=== PATIENT | female | born 1985 | race Two or more races ===

== ENCOUNTER 2024-02-29 18:04 | Emergency (ER) | payer OTHER ==
[~2024-02-29] VITALS: Ht 152.4 cm; Wt 61.2 kg
[~2024-02-29 18:04] MED LIST: TYLENOL W-CODEI1 TAB PO; TYLENOL-CODEINE1 TAB PO
[2024-02-29 20:42] LABS: PH,URINE 5.5 (5.0-8.0); URINE APPEARANCE Clear; URINE BILIRRUBIN Negative (NEGATIVE); URINE BLOOD Moderate; URINE COLOR Yellow; URINE GLUCOSE Negative (NEGATIVE); URINE LEUKOCYTE Negative; URINE NITRATE Negative; URINE PROTEIN Negative (NEGATIVE); URINE UROBILINOGEN 0.2 E.U./dl
[2024-02-29 20:46] LABS: URINE BACTERIA 6.2 uL (0.0-1933); URINE EPITHELIAL CELLS 4.7 uL (0.0-38.8); URINE RBC 138.7 uL (0.0-20.8); URINE WBC 7.2 uL (0.0-23.2)
[2024-02-29 22:21] LABS: MEAN CELL VOLUME 84.1 fL (80.00-100.00); MEAN CORPUSCULAR HGB CONC 34.8 g/dl (32.0-36.0); PLATELET COUNT 238 K/uL (150-450); RED BLOOD COUNT 2.53 M/uL (4.00-6.00); RED CELL DISTRIBUTION WIDTH 14.1 % (11.5-14.5)
[2024-02-29 22:22] LABS: MEAN CORPUSCULAR HEMOGLOBIN 29.2 pg (27.00-32.0)
[2024-02-29 22:24] LABS: HEMOGLOBIN 7.4 g/dL (12.0-15.00)
[2024-02-29 22:25] LABS: HEMATOCRIT 21.2 % (36.0-45.00)
[2024-02-29] MEDS ORDERED: ESTROGENS, CONJUGATED 25 MG VIAL IV ONE (23:15)
== END 2024-03-01 01:00 | disposition home or self-care (01) ==
LOC: ER 18:04
PROVIDERS: Emergency Medicine
DX: N93.9 Abnormal uterine and vaginal bleeding, unspecified (principal); D64.9 Anemia, unspecified; Z20.822 Contact with and (suspected) exposure to COVID-19; Z88.8 Allergy status to other drugs, medicaments and biological substances

== ENCOUNTER 2024-03-01 08:14 | Inpatient (IN) | payer OTHER ==
[~2024-03-01] VITALS: Ht 167.6 cm; Wt 61.2 kg
[2024-03-01] MEDS ORDERED: RINGERS SOLUTION,LACTATED 1,000 ML IV ONE (08:30)
[2024-03-01 09:21] LABS: INR 1.01; PROTHROMBIN TIME 10.6 SECONDS (9.0-11.5)
[2024-03-01 09:30] LABS: MEAN CELL VOLUME 83.3 fL (80.00-100.00); MEAN CORPUSCULAR HGB CONC 34.3 g/dl (32.0-36.0); PARTIAL THROMBOPLASTIN TIME 20.3 SECONDS (22.0-34.0); PLATELET COUNT 206 K/uL (150-450); RED BLOOD COUNT 2.26 M/uL (4.00-6.00); RED CELL DISTRIBUTION WIDTH 14.3 % (11.5-14.5)
[2024-03-01 09:31] LABS: MEAN CORPUSCULAR HEMOGLOBIN 28.7 pg (27.00-32.0)
[2024-03-01 09:32] LABS: HEMATOCRIT 18.8 % (36.0-45.00); HEMOGLOBIN 6.5 g/dL (12.0-15.00)
[2024-03-01 10:34] LABS: ALBUMIN 2.5 gm/dL (3.4-5.0); ALKALINE PHOSPHATASE 41 U/L (50-136); ALT/SGPT 23 U/L (12-78); ANION GAP 9 (10.0-20.0); AST/SGOT 20 U/L (15-37); BILIRUBIN TOTAL 0.19 mg/dL (0.3-1.2); BLOOD UREA NITROGEN 9 mg/dL (7-18); BUN CREA RATIO 14 (7.0-25.0); CALCIUM 7.9 mg/dL (8.5-10.1); CARBON DIOXIDE 26 mEq/L (21-32); CHLORIDE 110 mmol/L (98-107); CREATININE SERUM 0.65 mg/dL (0.55-1.02); GFR 101.47; GLOBULINA 3.3 G/DL (2.4-3.5); GLUCOSE FASTING 97 mg/dL (65-100); OSMOLALITY SERUM 280 MOSM/KG (275-295); POTASSIUM 3.78 mEq/L (3.5-5.1); SODIUM 141 mmol/L (136-145); TOTAL PROTEIN 5.8 gm/dL (6.4-8.2)
[2024-03-01 10:41] LABS: HCG QUANTITATIVE < 1 mUI/mL (1-3)
[2024-03-01] MEDS ORDERED: ESTROGENS, CONJUGATED 25 MG VIAL IV SCH ×2 (11:05→21:00)
[2024-03-01 11:30] LABS: PH,URINE 6.5 (5.0-8.0); URINE APPEARANCE Cloudy; URINE BILIRRUBIN Negative (NEGATIVE); URINE BLOOD Large; URINE COLOR Orange; URINE GLUCOSE Negative (NEGATIVE); URINE LEUKOCYTE Negative; URINE NITRATE Negative; URINE PROTEIN Negative (NEGATIVE); URINE UROBILINOGEN 0.2 E.U./dl
[2024-03-01 11:33] LABS: URINE BACTERIA 71.8 uL (0.0-1933); URINE RBC 4299.8 uL (0.0-20.8); URINE WBC 26.2 uL (0.0-23.2)
[2024-03-01] MEDS ORDERED: SOD FERRIC GLUC COMPLX/SUCROSE 125 MG in 0.9 % SODIUM CHLORIDE 100 ML IV SCH (14:04)
[2024-03-01] MEDS ORDERED: ACETAMINOPHEN 500 MG GEL..CAP PO PRN (14:45)
[2024-03-02 08:35] LABS: HEMATOCRIT 30.5 % (36.0-45.00); HEMOGLOBIN 10.5 g/dL (12.0-15.00); MEAN CELL VOLUME 85.2 fL (80.00-100.00); MEAN CORPUSCULAR HEMOGLOBIN 29.2 pg (27.00-32.0); MEAN CORPUSCULAR HGB CONC 34.3 g/dl (32.0-36.0); PLATELET COUNT 188 K/uL (150-450); RED BLOOD COUNT 3.58 M/uL (4.00-6.00); RED CELL DISTRIBUTION WIDTH 15.1 % (11.5-14.5)
[2024-03-02] MEDS ORDERED: FUROsemide 40 MG/4 ML VIAL IV ONE (12:15)
[2024-03-02] MEDS ORDERED: DIPHENHYDRAMINE HCL 50 MG/ML VIAL 1ML IV ONE (12:15)
[2024-03-02] MEDS ORDERED: METHYLPREDNISOLONE SOD SUCC 125 MG VIAL IV ONE (12:15)
[2024-03-02] MEDS ORDERED: METHYLPREDNISOLONE SOD SUCC 125 MG VIAL IV STA (12:28)
[2024-03-02] MEDS ORDERED: METHYLPREDNISOLONE 4 MG TABLET PO NR (21:00)
[2024-03-03] MEDS ORDERED: METHYLPREDNISOLONE 4 MG TABLET PO NR ×4 (06:00→21:00)
[2024-03-03] MEDS ORDERED: FF) NORGESTREL-ETHINYL ESTRADIOL TAB PO SCH ×2 (09:00→17:00)
[2024-03-03] MEDS ORDERED: FF) NORGESTREL-ETHINYL ESTRADIOL TAB PO NR (09:30)
[2024-03-03] MEDS ORDERED: DOCUSATE SODIUM 100MG CAP PO SCH (13:30)
[2024-03-04] MEDS ORDERED: METHYLPREDNISOLONE 4 MG TABLET PO NR ×4 (06:00→21:00)
[2024-03-05] MEDS ORDERED: METHYLPREDNISOLONE 4 MG TABLET PO NR ×3 (06:00→21:00)
[2024-03-06] MEDS ORDERED: METHYLPREDNISOLONE 4 MG TABLET PO NR ×2 (11:00→21:00)
[2024-03-07] MEDS ORDERED: METHYLPREDNISOLONE 4 MG TABLET PO NR (06:00)
== END 2024-03-04 09:12 | disposition home or self-care (01) | DRG 812 ==
LOC: ER 08:14 → OB/GYN 11:30
PROVIDERS: General Practice; ADMIT Obstetrics & Gynecology; ATTEND Obstetrics & Gynecology
PROC: 30233N1 Transfusion of Nonautologous Red Blood Cells into Peripheral Vein, Percutaneous Approach (ICD-10-PCS; principal; 2024-03-01)
PROC: BW28ZZZ Computerized Tomography (CT Scan) of Head (ICD-10-PCS; 2024-03-01)
PROC: BR20ZZZ Computerized Tomography (CT Scan) of Cervical Spine (ICD-10-PCS; 2024-03-01)
DX: D64.9 Anemia, unspecified (principal); N93.8 Other specified abnormal uterine and vaginal bleeding; Z20.822 Contact with and (suspected) exposure to COVID-19

== ENCOUNTER 2024-07-22 08:00 | Inpatient (IN) | payer OTHER ==
[~2024-07-22] VITALS: Ht 154.9 cm; Wt 63.5 kg
[2024-07-22 10:39] VITALS: BP 109/74
[2024-07-22 10:43] VITALS: BP 101/66
[2024-07-22 10:46] LABS: HEMOGLOBIN 12.4 g/dL (12.0-15.00); MEAN CELL VOLUME 86.7 fL (80.00-100.00); MEAN CORPUSCULAR HGB CONC 33.4 g/dl (32.0-36.0); PLATELET COUNT 240 K/uL (150-450); RED BLOOD COUNT 4.27 M/uL (4.00-6.00)
[2024-07-22 10:58] LABS: URINE APPEARANCE Clear; URINE BILIRRUBIN Negative (NEGATIVE); URINE BLOOD Negative; URINE COLOR Yellow; URINE GLUCOSE Negative (NEGATIVE); URINE KETONE Negative (NEGATIVE); URINE LEUKOCYTE Small; URINE NITRATE Negative; URINE PROTEIN Negative (NEGATIVE); URINE UROBILINOGEN 0.2 E.U./dl
[2024-07-22 11:04] LABS: URINE BACTERIA 95.7 uL (0.0-1933); URINE EPITHELIAL CELLS 4.4 uL (0.0-38.8); URINE WBC 5.6 uL (0.0-23.2)
[2024-07-22 11:06] LABS: INR 0.99; PARTIAL THROMBOPLASTIN TIME 25.8 SECONDS (22.0-34.0); PROTHROMBIN TIME 10.8 SECONDS (9.0-11.5)
[2024-07-22 11:11] LABS: URINE RBC 0.3 uL (0.0-20.8)
[2024-07-22 12:00] LABS: ALBUMIN 3.7 gm/dL (3.4-5.0); BILIRUBIN TOTAL 0.59 mg/dL (0.3-1.2); CALCIUM 8.8 mg/dL (8.5-10.1); CREATININE SERUM 0.72 mg/dL (0.55-1.02); GFR 89.71; GLOBULINA 3.8 G/DL (2.4-3.5); POTASSIUM 4.39 mEq/L (3.5-5.1); TOTAL PROTEIN 7.5 gm/dL (6.4-8.2); TSH 1.9 uIU/mL (0.358-3.74)
[2024-07-31] MEDS ORDERED: CEFOXITIN SODIUM 2,000 MG VIAL IV ONE (08:30)
[2024-07-31] MEDS ORDERED: POVIDONE-IODINE 118 ML BOTT TOP ONE (08:30)
[2024-07-31] MEDS ORDERED: PROMETHAZINE HCL 50 MG/ML AMPUL IV SCH (09:23)
[2024-07-31] MEDS ORDERED: MEPERIDINE HCL/PF 50 MG/ML VIAL IV SCH (09:23)
[2024-07-31] MEDS ORDERED: RINGERS SOLUTION,LACTATED 1,000 ML IV SCH (09:30)
[2024-07-31 10:36] LABS: HEMATOCRIT 33.1 % (36.0-45.00); HEMOGLOBIN 11.2 g/dL (12.0-15.00); MEAN CELL VOLUME 86.8 fL (80.00-100.00); MEAN CORPUSCULAR HEMOGLOBIN 29.3 pg (27.00-32.0); MEAN CORPUSCULAR HGB CONC 33.7 g/dl (32.0-36.0); PLATELET COUNT 224 K/uL (150-450); RED BLOOD COUNT 3.81 M/uL (4.00-6.00)
[2024-07-31] MEDS ORDERED: MORPHINE SULFATE 4 MG/ML VIAL IV ONE (12:20)
[2024-07-31 13:35] VITALS: BP 109/74
[2024-08-01] VITALS: BP 100/63
[2024-08-01 05:16] VITALS: BP 99/63
[2024-08-01 09:02] VITALS: BP 118/76
[2024-08-01] MEDS ORDERED: NAPR500T14 PO (09:02)
[2024-08-01] MEDS ORDERED: Tylenol #3 PO (09:02)
[2024-08-01] MEDS ORDERED: ACETAMINOPHEN WITH CODEINE 1 UDTAB TABLET PO STA (09:40)
== END 2024-08-01 10:08 | disposition home or self-care (01) | DRG 743 ==
LOC: O/R 07-31 05:35 → OB/GYN 07-31 08:00
PROVIDERS: ADMIT Obstetrics & Gynecology; ATTEND Obstetrics & Gynecology
PROC: 0UT77ZZ Resection of Bilateral Fallopian Tubes, Via Natural or Artificial Opening (ICD-10-PCS; 2024-07-31)
PROC: 0UT27ZZ Resection of Bilateral Ovaries, Via Natural or Artificial Opening (ICD-10-PCS; 2024-07-31)
PROC: 0JQC0ZZ Repair Pelvic Region Subcutaneous Tissue and Fascia, Open Approach (ICD-10-PCS; 2024-07-31)
PROC: 0USG4ZZ Reposition Vagina, Percutaneous Endoscopic Approach (ICD-10-PCS; 2024-07-31)
PROC: 0TJB8ZZ Inspection of Bladder, Via Natural or Artificial Opening Endoscopic (ICD-10-PCS; 2024-07-31)
PROC: 0UT97ZZ Resection of Uterus, Via Natural or Artificial Opening (ICD-10-PCS; principal; 2024-07-31 08:30)
DX: D25.1 Intramural leiomyoma of uterus (principal); N72 Inflammatory disease of cervix uteri; N83.01 Follicular cyst of right ovary; D50.0 Iron deficiency anemia secondary to blood loss (chronic); N92.0 Excessive and frequent menstruation with regular cycle; N81.11 Cystocele, midline; Z20.822 Contact with and (suspected) exposure to COVID-19